=== PATIENT | female | born 1995 | race Two or more races ===

== ENCOUNTER 2024-10-17 14:58 | Emergency (ER) | payer BC ==
[~2024-10-17] VITALS: Ht 152.4 cm; Wt 54.4 kg
[2024-10-17] MEDS ORDERED: PROSCAR5 MG (15:12)
[2024-10-17] MEDS ORDERED: 0.9 % SODIUM CHLORIDE 1,000 ML IV STA (16:36)
[2024-10-17] MEDS ORDERED: FAMOTIDINE/PF 20 MG/2 ML VIAL IV PUSH STA (16:36)
[2024-10-17] MEDS ORDERED: HYOSCYAMINE SULFATE 0.125 MG TAB.SUBL SL ONE (16:45)
[2024-10-17] MEDS ORDERED: FAMOTIDINE/PF 20 MG/2 ML VIAL ONE (16:53)
[2024-10-17] MEDS ORDERED: HYOSCYAMINE SULFATE 0.125 MG TAB.SUBL ONE ×2 (16:53→17:11)
[2024-10-17 17:30] LABS: BASO % 0.3 % (0.1-1.2); EOS # 0.01 (0.04-0.54); EOS % 0.1 % (0.7-7.0); HEMATOCRIT 38.7 % (34.1-44.9); HEMOGLOBIN 13.5 g/dL (11.2-15.7); LYMPH # 0.28 (1.18-3.74); LYMPH % 2.7 % (19.3-53.1); MONO # 0.69 (0.24-0.82); MONO % 6.7 % (4.7-12.5); NEUT # 9.27 (1.56-6.13); NEUT % 89.9 % (34.0-71.1); PLATELET COUNT 237 K/uL (163-369); RED BLOOD COUNT 4.22 M/uL (3.93-5.22); RED CELL DISTRIBUTION WIDTH 12.2 % (11.6-14.4)
[2024-10-17 17:55] LABS: INFLUENZA A AG NEGATIVE (NEGATIVE)
[2024-10-17 17:56] LABS: COVID-19 AG NEGATIVE (NEGATIVE)
[2024-10-17 18:01] LABS: CALCIUM 8.4 mg/dL (8.5-10.1); CREATININE SERUM 0.72 mg/dL (0.55-1.02); GFR 95.77; POTASSIUM 4.13 mEq/L (3.5-5.1)
[2024-10-17 19:52] LABS: PH,URINE 5.5 (5.0-8.0); URINE APPEARANCE Clear; URINE BILIRRUBIN Negative (NEGATIVE); URINE BLOOD Negative; URINE COLOR Yellow; URINE GLUCOSE Negative (NEGATIVE); URINE LEUKOCYTE Negative; URINE NITRATE Negative; URINE PROTEIN Negative (NEGATIVE); URINE UROBILINOGEN 0.2 E.U./dl
[2024-10-17 19:57] LABS: URINE BACTERIA 341.4 uL (0.0-1933); URINE RBC 3.3 uL (0.0-20.8); URINE WBC 7.4 uL (0.0-23.2)
[2024-10-17 20:00] LABS: URINE CAST 0.29 uL (0.0-1.40); URINE KETONE 80 (NEGATIVE)
[2024-10-17] MEDS ORDERED: ACETAMINOPHEN 500 MG GEL..CAP PO ONE (21:10)
== END 2024-10-17 21:58 | disposition home or self-care (01) ==
LOC: ER 14:58
PROVIDERS: Emergency Medicine
DX: R10.9 Unspecified abdominal pain (principal); R11.10 Vomiting, unspecified; Z20.822 Contact with and (suspected) exposure to COVID-19